=== PATIENT | female | born 1970 | race Caucasian/White ===

== ENCOUNTER → 2023-08-07 15:24 | Outpatient (REF) | payer OTHER, SELFPAY | LOC: WDC 15:24 | PROVIDERS: ATTENDING PHYSICIAN Family Medicine | DX: Z12.31 Encounter for screening mammogram for malignant neoplasm of breast (principal) | CPT/HCPCS: 77063; 77067 ==

== ENCOUNTER → 2024-08-12 11:07 | Outpatient (REF) | payer OTHER, SELFPAY | LOC: WDC 11:07 | PROVIDERS: ATTENDING PHYSICIAN Family Medicine | DX: Z12.31 Encounter for screening mammogram for malignant neoplasm of breast (principal) | CPT/HCPCS: 77063; 77067 ==

== ENCOUNTER → 2024-10-25 12:58 | Outpatient (REF) | payer OTHER, SELFPAY | LOC: PAVMRI 12:58 | PROVIDERS: ATTENDING PHYSICIAN Specialist; FAMILY PHYSICIAN Family Medicine | DX: M25.512 Pain in left shoulder (principal) | CPT/HCPCS: 73221 ==

== ENCOUNTER → 2025-01-14 13:09 | Outpatient (REF) | payer OTHER, SELFPAY | LOC: HWRAD 13:09 | PROVIDERS: ATTENDING PHYSICIAN Obstetrics & Gynecology; FAMILY PHYSICIAN Family Medicine | DX: N91.2 Amenorrhea, unspecified (principal); N97.0 Female infertility associated with anovulation; Z87.42 Personal history of other diseases of the female genital tract | CPT/HCPCS: 76830; 76856 ==